=== PATIENT | male | born 1995 | race Caucasian/White ===

== ENCOUNTER 2016-02-26 05:26 | Emergency (ER) | payer BC ==
[~2016-02-26] VITALS: Ht 172.7 cm; Wt 78.0 kg
[~2016-02-26 05:26] MED LIST: CLR10 PO
[2016-02-26 05:32] VITALS: TEMP 36.9; O2SAT 94; Ht 172.7 cm; Wt 78.0 kg
--- NOTE | 2016-02-26 05:50 | EMERGENCY ROOM VISIT NOTE ---
History Report prepared by Leonibmanfred: Sherice Sanderson Under the Supervision of: Dr. Tere Ramos D.O. First contact with patient: 05:35 Chief Complaint: ALCOHOL OVERDOSE Stated Complaint: ALCOHOL OVERDOSE Nursing Triage Summary: arrived via amb from his apartment friends noticed he had a large lac to his scalp. unsure how he got it. History of Present Illness The patient is a 20 year old male who presents to the Emergency Room with complaints of an alcohol overdose that occurred prior to arrival. Per EMS, the patient was found in his apartment by his roommates with a laceration on the back of his head. They report that once the patient's roommates cleaned him up , they were concerned about the amount of blood seen and with the way he was acting. The patient states that this evening he was hanging out with his friends drinking. He states that he drank a couple beers and 3-4 shots of liquor. The patient states that he dropped his head backwards, denying any fall. He denies any drug use tonight. The patient denies any abdominal pain or back pain. The HPI is limited secondary to alcohol intoxication. Source of History: patient, EMS History Limited By: intoxication Onset: prior to arrival Position: other (global) Quality: other (alcohol overdose) Associated Symptoms: No abdominal pain, No back pain Review of Systems The history is limited secondary to alcohol intoxication. Past Medical & Surgical Medical Problems: (1) No Known Active Medical Problems Family History Unobtainable secondary to alcohol intoxication. Social History Smoking Status: Never Smoker Marital Status: single Occupation Status: [employer] student Current/Historical Medications No Active Prescriptions or Reported Meds Allergies Coded Allergies: No Known Allergies (Unverified , 02/26/16) Physical Exam Vital Signs Date Time Temp Pulse Resp B/P Pulse Ox O2 Delivery O2 Flow Rate FiO2 02/26/16 07:28 101 02/26/16 07:00 78 16 126/66 90 Room Air 02/26/16 06:14 87 14 149/68 96 Room Air 02/26/16 05:34 100 02/26/16 05:32 36.9 106 18 146/70 94 Room Air 02/26/16 05:32 94 Room Air Physical Exam HEENT: Head - Vertical 6 cm laceration to the right occiput. Pupils are equal, round, and reactive to light. Extraocular eye muscles are intact and sclera are anicteric. Ears - bilaterally patent canals with no evidence of hemotympanum. Nose - moist nasal mucosa without evidence of trauma or discharge. Mouth - moist buccal mucosa with no trauma to the teeth or signs of malocclusion. Neck: The neck is supple and there is no pain to palpation over the posterior cervical spine and no obvious step-offs or deformities. There is no JVD or tracheal deviation. Chest: There are no signs of deformities, contusions or abrasions to the chest wall. There is no obvious crepitus or paradoxical chest rise. Heart: Regular, rate, and rhythm. There is a normal S1 and S2 with no murmurs, clicks, or gallops appreciated. Lungs: Clear to auscultation bilaterally with no wheezes, rales, or rhonchi. Abdomen: Soft, completely nontender, nondistended, with good bowel sounds. There is no sign of trauma such as contusions, abrasions or penetrations. There are no palpable pulsatile masses or hepatosplenomegaly. There is no guarding, rigidity, or rebound noted. Pelvis: Stable to rock and compression. Extremities: No obvious trauma, deformities, contusions, or edema. There are easily palpable peripheral pulses. Neuro: The patient is awake and alert and easily able to follow commands. He is moving all 4 extremities at this time. He remains confused about the events that brought him here. Back: The entire thoracic, lumbar, and sacral spine were palpated. There are no obvious step-offs or deformities noted. There are no obvious signs of trauma such as contusions abrasions penetrations noted to the back. Medical Decision & Procedures ER Provider Diagnostic Interpretation: CT results as stated below per my review and radiologist interpretation: CT SCAN OF THE BRAIN WITHOUT IV CONTRAST CLINICAL HISTORY: Trauma. Intoxication. COMPARISON STUDY: No priors. TECHNIQUE: Unenhanced axial CT scan of the brain is performed from the vertex to the skull base. Automated dose control exposure was utilized. FINDINGS: Brain parenchyma: The brain parenchyma is normal in appearance. There is no hemorrhage, mass effect, or evidence of acute territorial ischemia by CT criteria. Perez-white matter is preserved. No extra-axial fluid collection is seen. Ventricles, sulci, cisterns: Normal in configuration. Intracranial vasculature: The visualized intracranial vasculature at the skull base is normal in appearance. Calvarium: There is no depressed calvarial fracture. Sinuses and mastoids: Trace mucosal thickening is seen within the maxillary antra. The remaining visualized paranasal sinuses are clear. The mastoid air cells are well pneumatized. Orbits: The bony orbits are grossly intact. IMPRESSION: No acute intracranial abnormality. Electronically signed by: Geraldo Oconnor M.D. 02/26/2016 6:27 AM Dictated Date/Time: 02/26/2016 6:[address] SCAN OF THE CERVICAL SPINE CLINICAL HISTORY: Trauma. Intoxication. COMPARISON STUDY: No priors. TECHNIQUE: CT scan of the cervical spine is performed from the skull base to the upper thoracic spine. Images are reviewed in the axial, sagittal, and coronal planes. IV contrast was not administered for this examination. CT DOSE: 1662.30 mGy.cm FINDINGS: Skeletal structures: The skeletal structures are well mineralized. There is no evidence of fracture or subluxation involving the cervical spine. Vertebral body height and alignment are maintained. There is straightening of the cervical lordosis. The odontoid process and lateral masses are intact. The atlantoaxial articulation is preserved. The spinous processes appear intact. Intervertebral discs: The disc spaces are well maintained. Central canal: Widely patent. Soft tissues: The prevertebral and paraspinous soft tissues are within normal limits. Calvarium: The visualized calvarium at the skull base appears intact. Brain parenchyma: Partially visualized brain parenchyma the skull base is within normal limits. Sinuses and mastoids: The visualized paranasal sinuses are clear. The mastoid air cells are well pneumatized. Lung apices: Clear as visualized. IMPRESSION: There is no evidence of fracture or subluxation involving the cervical spine. Electronically signed by: Geraldo Oconnor M.D. 02/26/2016 6:29 AM Dictated Date/Time: 02/26/2016 6:27 AM Laboratory Results 02/26/16 05:43 Test 02/26/16 05:43 Anion Gap 13.0 mmol/L (3-11) Est Creatinine Clear Calc Drug Dose 102.7 ml/min Estimated GFR () 110.6 Estimated GFR (Non- 95.5 BUN/Creatinine Ratio 10.0 (10-20) Calcium Level 8.9 mg/dl (8.5-10.1) Ethyl Alcohol mg/dL 305.0 mg/dl (0-3) Laboratory results per my review. Procedure Vinny Rodriges PA-C performed the laceration repair on the patient. See his dictation for further detail. ED Course 0543: Past medical records reviewed. The patient was evaluated in room A9B. A complete history and physical exam was performed. Laboratory studies were drawn as above. The patient had a CT scan of the brain and cervical spine as described above. 0636: I reevaluated the patient and he is sound asleep and hemodynamically stable. 0715: Ordered Lidocaine HCl 20 ml INFIL. Vinny Rodriges PA-C performed the laceration repair on the patient. See his dictation for further detail. 0815: The patient wasn't to leave the emergency department at this time. I did not feel comfortable since alcohol level remained so high. 0855: The patient was able to find a sober friend who came to the emergency room to pick him up. I reviewed the discharge instructions with the patient and the sober friend. I've encouraged him not to drive a car until 24 hours from now. He should certainly not drink any further alcohol. I explained to him the hazards of taking such excessive amount of alcohol. Medical Decision The patient is a 20 year old male who presents to the ED with an alcohol overdose. Differential diagnosis includes alcohol overdose, drug intoxication, head injury, hypoglycemia, hypothermia Lab interpretation: Alcohol 305, glucose 107, normal renal function Patient presents to the emergency department with some trauma to the back of his head. He is unsure exactly how he suffered this injury. He was drinking a significant amount of alcohol tonight. His blood alcohol level is greater than 300. The wound on his scalp was repaired with morales. The patient became more sober throughout the morning and was eventually discharged home with a sober friend. Impression Primary Impression: Alcohol overdose Additional Impression: Occipital scalp laceration Scribe Attestation The scribe's documentation has been prepared under my direction and personally reviewed by me in its entirety. I confirm that the note above accurately reflects all work, treatment, procedures, and medical decision making performed by me. Departure Information Dispostion Home / Self-Care Prescriptions No Active Prescriptions or Reported Meds Referrals No Doctor, Assigned (PCP) Forms HOME CARE DOCUMENTATION FORM, IMPORTANT VISIT INFORMATION Patient Instructions ED Laceration Scalp Stitch Or Stap, ED Overdose Alcohol, [facility]: [employer] Students and Alcohol Related Visits, My [facility] Additional Instructions Avoid such excessive alcohol use in the future. Take plenty of clear liquids Use tylenol for headaches Rest with your head elevated. Have morales removed in 10 days Problem Qualifiers
[2016-02-26 06:16] LABS: CALCIUM 8.9 mg/dl (8.5-10.1); CREATININE 1.1 mg/dl (0.60-1.40); POTASSIUM 3.9 mmol/L (3.5-5.1)
--- NOTE | 2016-02-26 06:29 | DIAGNOSTIC IMAGING REPORT ---
CT SCAN OF THE BRAIN WITHOUT IV CONTRAST CLINICAL HISTORY: Trauma. Intoxication. COMPARISON STUDY: No priors. TECHNIQUE: Unenhanced axial CT scan of the brain is performed from the vertex to the skull base. Automated dose control exposure was utilized. FINDINGS: Brain parenchyma: The brain parenchyma is normal in appearance. There is no hemorrhage, mass effect, or evidence of acute territorial ischemia by CT criteria. Perez-white matter is preserved. No extra-axial fluid collection is seen. Ventricles, sulci, cisterns: Normal in configuration. Intracranial vasculature: The visualized intracranial vasculature at the skull base is normal in appearance. Calvarium: There is no depressed calvarial fracture. Sinuses and mastoids: Trace mucosal thickening is seen within the maxillary antra. The remaining visualized paranasal sinuses are clear. The mastoid air cells are well pneumatized. Orbits: The bony orbits are grossly intact. IMPRESSION: No acute intracranial abnormality. Electronically signed by: Geraldo Oconnor M.D. 02/26/2016 6:27 AM Dictated Date/Time: 02/26/2016 6:25 AM
--- NOTE | 2016-02-26 06:31 | DIAGNOSTIC IMAGING REPORT ---
CT SCAN OF THE CERVICAL SPINE CLINICAL HISTORY: Trauma. Intoxication. COMPARISON STUDY: No priors. TECHNIQUE: CT scan of the cervical spine is performed from the skull base to the upper thoracic spine. Images are reviewed in the axial, sagittal, and coronal planes. IV contrast was not administered for this examination. CT DOSE: 1662.30 mGy.cm FINDINGS: Skeletal structures: The skeletal structures are well mineralized. There is no evidence of fracture or subluxation involving the cervical spine. Vertebral body height and alignment are maintained. There is straightening of the cervical lordosis. The odontoid process and lateral masses are intact. The atlantoaxial articulation is preserved. The spinous processes appear intact. Intervertebral discs: The disc spaces are well maintained. Central canal: Widely patent. Soft tissues: The prevertebral and paraspinous soft tissues are within normal limits. Calvarium: The visualized calvarium at the skull base appears intact. Brain parenchyma: Partially visualized brain parenchyma the skull base is within normal limits. Sinuses and mastoids: The visualized paranasal sinuses are clear. The mastoid air cells are well pneumatized. Lung apices: Clear as visualized. IMPRESSION: There is no evidence of fracture or subluxation involving the cervical spine. Electronically signed by: Geraldo Oconnor M.D. 02/26/2016 6:29 AM Dictated Date/Time: 02/26/2016 6:27 AM
[2016-02-26] MEDS ORDERED: XYLOCAINE 1%/SOD BICARB 20 ML VIAL INFIL ONE (07:15)
--- NOTE | 2016-02-26 07:23 | EMERGENCY ROOM VISIT NOTE ---
ED Visit Note 20-year-old male who I was asked by Dr. Ramos, ED attending physician, to perform a scalp laceration repair. Please see her dictation for further treatment and final disposition. PROCEDURE NOTE: Examination shows a 6 cm vertical occipital laceration without active bleeding or hematoma formation. The patient did wake up as I was positioning him for laceration repair, and provided verbal consent for the procedure. Using buffered 1% lidocaine without epinephrine, good local anesthesia was administered. The wound was then peripherally cleansed with iodine, then irrigated with normal saline. The wound was then approximated using morales. Bacitracin was applied.
[2016-02-26 08:55] VITALS: BP 121/69; PULSE 92; O2SAT 96
== END 2016-02-26 08:56 | disposition home or self-care (01) ==
LOC: EDBD 05:26 → C.EDA 05:27
DX: T51.0X1A Toxic effect of ethanol, accidental (unintentional), initial encounter (principal); S01.01XA Laceration without foreign body of scalp, initial encounter; X58.XXXA Exposure to other specified factors, initial encounter; F10.129 Alcohol abuse with intoxication, unspecified; Y90.8 Blood alcohol level of 240 mg/100 ml or more